=== PATIENT | female | born 1950 | race African-American/Black ===

== ENCOUNTER 2018-08-09 18:21 | Emergency (ER) | payer OTHER ==
[~2018-08-09] VITALS: Ht 157.5 cm; Wt 64.0 kg
[2018-08-09 19:03] VITALS: BP 148/72
[2018-08-09] MEDS ORDERED: ACETAMINOPHEN 500MG TABLET PO ONE (22:45)
[2018-08-09 23:07] LABS: CLARITY URINE CLEAR (CLEAR); COLOR URINE YELLOW (YELLOW); KETONES URINE TRACE (NEGATIVE); LEUKOCYTE ESTERASE URINE 2+ (NEGATIVE); NITRITE URINE NEGATIVE (NEGATIVE); OCCULT BLOOD URINE NEGATIVE (NEGATIVE); PH URINE 6.5 (4.5-8.0); PROTEIN URINE NEGATIVE (NEGATIVE); SPECIFIC GRAVITY URINE 1.016 (1.005-1.030); UROBILINOGEN URINE 0.2 E.U./dL (0.2-1.0)
== END 2018-08-10 00:37 | disposition home or self-care (01) ==
LOC: ER 18:21
DX: S40.022A Contusion of left upper arm, initial encounter (principal); M25.562 Pain in left knee; M54.5 Low back pain; W22.8XXA Striking against or struck by other objects, initial encounter; Y93.89 Activity, other specified; Y92.238 Other place in hospital as the place of occurrence of the external cause; N39.0 Urinary tract infection, site not specified; I10 Essential (primary) hypertension; Z98.84 Bariatric surgery status
CPT/HCPCS: 72100; 73060; 73560; 99284